=== PATIENT | female | born 1970 | race Caucasian/White ===

== ENCOUNTER 2016-03-14 09:59 | Emergency (ER) | payer MEDICARE, MEDICAID ==
[2016-03-14 10:32] VITALS: BP 129/78
[2016-03-14] MEDS ORDERED: Gabapentin CAP(*) 300 MG PO ONE (11:47)
[2016-03-14] MEDS ORDERED: FLUoxetine CAP* 20 MG PO ONE (11:47)
--- NOTE | 2016-03-14 12:11 | ED ---
Medical Screening - HPI Summary HPI Summary: Patient is the mother of a child being evaluated by mental health. They presented 20 hours ago, and the mother thought the process would move more quickly so she didn't bring her regular daily medications with her. She uses the bus for transportation and lives approximately 25 minutes away, so she hasn' t been able to get home. He daughter is only 9 years old. The patient feels very anxious about her daughter's health, and needs her medication to help with her baseline anxiety. She denies SI, HI or self harm. She has no physical complaints. - History of Current Complaint Chief Complaint: EDGeneral Stated Complaint: MED REQUEST Time Seen by Provider: 03/14/16 10:52 Onset/Duration: Started Hours Ago Severity: severe Associated Signs and Symptoms: Other - Anxiety PMH/Surg Hx/FS Hx/Imm Hx Endocrine/Hematology History: Denies: Hx Anticoagulant Therapy, Hx Diabetes - GESTATIONAL DIABETES BUT NOT NOW, Hx Thyroid Disease Cardiovascular History: Denies: Hx Hypertension, Hx Pacemaker/ICD Respiratory History: Reports: Hx Asthma, Other Respiratory Problems/Disorders - History of bronchitis Denies: Hx Chronic Obstructive Pulmonary Disease (COPD) GI History: Denies: Hx Ulcer, Other GI Disorders History: Reports: Other Problems/Disorders - UTI Denies: Hx Renal Disease Musculoskeletal History: Reports: Hx Arthritis, Hx Back Problems, Other Musculoskeletal History - arthritis Denies: Hx Rheumatoid Arthritis, Hx Osteoporosis Sensory History: Reports: Hx Contacts or Glasses Denies: Hx Hearing Aid Opthamlomology History: Reports: Hx Contacts or Glasses Psychiatric History: Reports: Hx Anxiety, Hx Depression, Hx Inpatient Treatment , Hx Community Mental Health Tx, Hx Bipolar Disorder, Hx of Violent Episodes Against Others, Hx Substance Abuse Denies: Hx Eating Disorder, Hx Panic Disorder - Cancer History Hx Chemotherapy: No Hx Radiation Therapy: No - Surgical History Surgery Procedure, Year, and Place: Caesarean section x2. "Mass of fat" removed from left scapula Infectious Disease History: No Infectious Disease History: Reports: Hx Hepatitis - Hep C hx, Hx of Known/ Suspected MRSA Denies: Hx Clostridium Difficile, Hx Human Immunodeficiency Virus (HIV), Hx Shingles, Hx Tuberculosis, Hx Known/Suspected VRE, Hx Known/Suspected VRSA, History Other Infectious Disease, Traveled Outside the [place] in Last 30 Days - Family History Known Family History: Positive: None, Diabetes Negative: Cardiac Disease, Hypertension - Social History Occupation: Unemployed Lives: With Family Alcohol Use: None Substance Use Type: Reports: None Substance Use Comment - Amount & Last Used: on suboxone since July 2014, heroin abuse hx Smoking Status (MU): Current Every Day Smoker Type: Cigarettes Amount Used/How Often: 1/2 PPD Length of Time of Smoking/Using Tobacco: 26+ years (began at age 16 years) Have You Smoked in the Last Year: Yes Cessation Counseling: Patient Advised to Stop Review of Systems Positive: Anxious All Other Systems Reviewed And Are Negative: Yes Physical Exam Triage Information Reviewed: Yes Vital Signs On Initial Exam: Initial Vitals Temp Pulse Resp BP Pulse Ox 96.6 F 85 18 129/78 100 03/14/16 10:26 03/14/16 10:03/14/16 10:03/14/16 10:03/14/16 10:26 Vital Signs Reviewed: Yes Appearance: Positive: Well-Appearing, No Pain Distress, Well-Nourished Skin: Positive: Warm, Skin Color Reflects Adequate Perfusion, Dry, Soft Head/Face: Positive: Normal Head/Face Inspection Eyes: Positive: EOMI, ALICIA, Conjunctiva Clear ENT: Positive: Hearing grossly normal Respiratory/Lung Sounds: Positive: Breath Sounds Present Cardiovascular: Positive: RRR Musculoskeletal: Negative: Edema Left, Edema Right Neurological: Positive: Sensory/Motor Intact, Alert, Oriented to Person Place, Time, [place] Bundle Intact Distally, Normal Gait Psychiatric: Positive: Anxious AVPU Assessment: Alert Diagnostics - Vital Signs Vital Signs Temp Pulse Resp BP Pulse Ox 03/14/16 10:26 96.6 F 85 18 129/78 100 - Laboratory Lab Statement: Any lab studies that have been ordered have been reviewed, and results considered in the medical decision making process. Course/Dx - Diagnoses Provider Diagnoses: Anxiety Discharge - Discharge Plan Condition: Stable Disposition: HOME Referrals: Kurt Weber MD [Primary Care Provider] - Additional Instructions: Please resume your normal medications.
[2016-03-15] MEDS ORDERED: Divalproex ER TAB(*) 500 MG PO ONE (11:53)
== END 2016-03-14 12:37 | disposition home or self-care (01) ==
LOC: ED 09:59
DX: F41.9 Anxiety disorder, unspecified (principal); F17.210 Nicotine dependence, cigarettes, uncomplicated; B19.20 Unspecified viral hepatitis C without hepatic coma
CPT/HCPCS: 99281; A9270-GY

== ENCOUNTER 2016-06-28 08:26 | Emergency (ER) | payer MEDICARE, MEDICAID ==
[2016-06-28 08:45] VITALS: BP 125/68
--- NOTE | 2016-06-28 10:17 | UC ---
Lower Extremity/Ankle HPI - HPI Summary HPI Summary: pain in right foot---no specific injury is concerned that she has a stress fracture---(she had something similar in left foot-that only showed fx after MRI ) - History of Current Complaint Chief Complaint: UCLowerExtremity Stated Complaint: FOOT PAIN Time Seen by Provider: 06/28/16 10:15 Hx Obtained From: Patient Hx Last Menstrual Period: iud ?: No Onset/Duration: Gradual Onset, Lasting Weeks, Worse Since - past fe days Severity Initially: Moderate Severity Currently: Moderate Aggravating Factor(s): Standing, Ambulation Alleviating Factor(s): Rest, Elevation Able to Bear Weight: No - Allergies/Home Medications Allergies/Adverse Reactions: Allergies Allergy/AdvReac Type Severity Reaction Status Date / Time Tetracyclines Allergy Severe Swelling Verified 02/06/16 14:19 Of Face,Lips,& Throat Latex Allergy Mild Rash Verified 02/06/16 14:19 [place] Allergy Rash Verified 02/06/16 14:19 Home Medications: Home Medications Asenapine Maleate [Saphris] 06/28/16 [History] [place] Carbonate [Lithobid] 900 mg 06/28/16 [History] PMH/Surg Hx/FS Hx/Imm Hx Previously Healthy: No - in recovery from opiate addiction Endocrine History Of: Denies: Diabetes - GESTATIONAL DIABETES BUT NOT NOW, Thyroid Disease Cardiovascular History Of: Denies: Cardiac Disorders, Hypertension, Pacemaker/ICD Respiratory History Of: Reports: Asthma Denies: COPD GI/ History Of: Denies: Ulcer, Renal Disease Psychological History Of: Reports: Anxiety, Depression, Bipolar Disorder Other History Of: Negative For: Anticoagulant Therapy - Surgical History Surgical History: Yes Surgery Procedure, Year, and Place: Caesarean section x2. "Mass of fat" removed from left scapula - Family History Known Family History: Positive: None, Diabetes Negative: Cardiac Disease, Hypertension - Social History Occupation: Unemployed Lives: With Family Alcohol Use: None Substance Use Type: None Substance Use Comment - Amount & Last Used: on suboxone since July 2014, heroin abuse hx Smoking Status (MU): Former Smoker Type: Cigarettes Amount Used/How Often: 1/2 PPD Length of Time of Smoking/Using Tobacco: 26+ years (began at age 16 years) Have You Smoked in the Last Year: Yes When Did the Patient Quit Smoking/Using Tobacco: 3 months ago Household Exposure Type: Cigarettes - Immunization History Most Recent Influenza Vaccination: Last years Most Recent Tetanus Shot: Unsure - about 2 years ago Most Recent Pneumonia Vaccination: Unsure Review of Systems Constitutional: Negative Skin: Negative Eyes: Negative ENT: Negative Respiratory: Negative Cardiovascular: Negative Gastrointestinal: Negative Genitourinary: Negative Motor: Negative Neurovascular: Negative Musculoskeletal: Arthralgia - right foot Neurological: Negative Psychological: Negative All Other Systems Reviewed And Are Negative: Yes Physical Exam Triage Information Reviewed: Yes Appearance: Well-Appearing, Well-Nourished, Pain Distress Vital Signs: Initial Vital Signs Temp 97.8 F 06/28/16 08:38 Pulse 72 06/28/16 08:38 Resp 18 06/28/16 08:38 BP 125/68 06/28/16 08:38 Pulse Ox 99 06/28/16 08:38 Vital Signs Reviewed: Yes Eye Exam: Normal Eyes: Positive: Conjunctiva Clear ENT Exam: Normal ENT: Positive: Normal ENT inspection, Hearing grossly normal. Negative: Nasal congestion, Nasal drainage, Tonsillar swelling, Tonsillar exudate, Trismus, Muffled/hoarse voice Dental Exam: Normal Neck exam: Normal Neck: Positive: Supple, Nontender, No Lymphadenopathy Respiratory Exam: Normal Respiratory: Positive: Chest non-tender, Lungs clear, Normal breath sounds, No respiratory distress, No accessory muscle use Cardiovascular Exam: Normal Cardiovascular: Positive: RRR, No Murmur, Pulses Normal, Brisk Capillary Refill Musculoskeletal Exam: Normal Musculoskeletal: Positive: Strength Intact, No Edema, ROM Limited @ - right mid foot Neurological Exam: Normal Neurological: Positive: Alert, Muscle Tone Normal Psychological Exam: Normal Skin Exam: Normal Diagnostics - Radiology No standard instances Xray Interpretation: Positive (See Comments) - small heel spur Radiology Interpretation Completed By: ED Physician, Radiologist Lower Extremity Course/Dx - Course Course Of Treatment: cam boot, crutches, ibuprofen,rest follow with ortho - Differential Dx/Diagnosis Differential Diagnosis/HQI/PQRI: Fracture (Closed), Sprain, Strain, Tendonitis Provider Diagnoses: (r) plantar fasciitis Discharge - Discharge Plan Condition: Stable Disposition: HOME Patient Education Materials: Plantar Fasciitis (ED), Heel Spur (ED), Plantar Fasciitis Exercises (ED) Referrals: Kurt Weber MD [Primary Care Provider] - Rudy Mcdowell MD [Medical Doctor] - 1 Week
--- NOTE | 2016-06-28 10:52 | RAD ---
INDICATION: Right heel pain. TECHNIQUE: 3 views of the right foot were obtained. FINDINGS: The bones are in normal alignment. No fracture is seen. Joint spaces appear maintained. There is a small spur arising from the inferior aspect of the calcaneus. IMPRESSION: SMALL CALCANEAL SPUR.
== END 2016-06-28 11:25 | disposition home or self-care (01) ==
LOC: UCEAST 08:26
DX: M72.2 Plantar fascial fibromatosis (principal)
CPT/HCPCS: 99213; G0463

== ENCOUNTER 2016-08-21 14:34 | Emergency (ER) | payer MEDICARE, MEDICAID ==
[2016-08-21 15:48] VITALS: BP 154/81
--- NOTE | 2016-08-21 16:01 | UC ---
Lower Extremity/Ankle HPI - HPI Summary HPI Summary: PT HAS CHRONIC ISSUES WITH BOTH HER FEET. RIGHT FOOT JUST CAME OUT OF A BOOT 3 WEEKS AGO FOR A CRACKED HEEL SPUR THAT RESULTED FROM COMPENSATING WHILE WALKING WITH HER LEFT FOOT IN A BOOT/CAST DUE TO FOOT FRACTURES. WHILE WALKING IN THE [place] 5 DAYS AGO SHE FELT AND HEARD A CRACK IN HER RIGHT FOOT AND NOW HAS PAIN AND SWELLING. OUT OF ANGER AND FRUSTRATION ABOUT HER FEET SHE DID NOT COME IN UNTIL TODAY FOR EVALUATION. SHE HAS BEEN FOLLOWING WITH DR. ANGULO WITH [facility]. - History of Current Complaint Stated Complaint: FOOT PAIN Time Seen by Provider: 08/21/16 15:36 Hx Obtained From: Patient Hx Last Menstrual Period: IUD 08/18/16 Onset/Duration: Sudden Onset, Lasting Days, Still Present Severity Initially: Moderate Severity Currently: Moderate Pain Intensity: 3 Pain Scale Used: 0-10 Numeric Aggravating Factor(s): Standing, Ambulation Alleviating Factor(s): Rest Able to Bear Weight: Yes - WITH PAIN - Allergies/Home Medications Allergies/Adverse Reactions: Allergies Allergy/AdvReac Type Severity Reaction Status Date / Time Tetracyclines Allergy Severe Swelling Verified 08/21/16 15:48 Of Face,Lips,& Throat Latex Allergy Mild Rash Verified 08/21/16 15:48 [place] Allergy Rash Verified 08/21/16 15:48 PMH/Surg Hx/FS Hx/Imm Hx - Additional Past Medical History Additional PMH: OSTEOPOROSIS Psychological History: Anxiety, Depression, Bipolar Disorder Other History Of: Negative For: Anticoagulant Therapy - Surgical History Surgical History: Yes Surgery Procedure, Year, and Place: Caesarean section x2. "Mass of fat" removed from left scapula - Family History Known Family History: Positive: None, Diabetes Negative: Cardiac Disease, Hypertension - Social History Alcohol Use: None Substance Use Type: None Substance Use Comment - Amount & Last Used: on suboxone since July 2014, heroin abuse hx Smoking Status (MU): Former Smoker Type: Cigarettes Amount Used/How Often: 1/2 PPD Length of Time of Smoking/Using Tobacco: 26+ years (began at age 16 years) Have You Smoked in the Last Year: Yes When Did the Patient Quit Smoking/Using Tobacco: 3 months ago Household Exposure Type: Cigarettes - Immunization History Most Recent Influenza Vaccination: Last years Most Recent Tetanus Shot: Unsure - about 2 years ago Most Recent Pneumonia Vaccination: Unsure Review of Systems Constitutional: Negative Skin: Negative Cardiovascular: Negative Gastrointestinal: Negative Genitourinary: Negative Musculoskeletal: Arthralgia, Decreased ROM All Other Systems Reviewed And Are Negative: Yes Physical Exam Triage Information Reviewed: Yes Appearance: Well-Appearing, No Pain Distress, Well-Nourished Vital Signs: Initial Vital Signs Temp 99.1 F 08/21/16 15:38 Pulse 90 08/21/16 15:38 Resp 16 08/21/16 15:38 BP 154/81 08/21/16 15:38 Pulse Ox 99 08/21/16 15:38 Vital Signs Reviewed: Yes Eyes: Positive: Conjunctiva Clear ENT: Positive: Hearing grossly normal Neck: Positive: Supple Respiratory: Positive: No respiratory distress, No accessory muscle use Cardiovascular: Positive: Pulses Normal Abdomen Description: Positive: Soft Musculoskeletal: Positive: ROM Limited @ - RIGHT TOES, Edema @ - RIGHT FOOT, Other: - TTP BRIDGE OF FOOT OVER 4TH METATARSAL Neurological: Positive: Alert Psychological: Positive: Age Appropriate Behavior Skin: Positive: rashes Diagnostics - Radiology RIGHT FOOT XRAY Xray Interpretation: Positive (See Comments) - SOFT TISSUE SWELLING Radiology Interpretation Completed By: Radiologist Lower Extremity Course/Dx - Course Course Of Treatment: PT HAS BOOT AND CRUTCHES AT HOME. WILL PEPE WRAP AND HAVE PT F/U WITH [facility] THIS WEEK. - Differential Dx/Diagnosis Provider Diagnoses: RIGHT FOOT SPRAIN Discharge - Discharge Plan Condition: Stable Disposition: HOME Patient Education Materials: Foot Sprain (ED) Referrals: Kurt Weber MD [Primary Care Provider] - If Needed Rudy Angulo MD [Medical Doctor] - 2 Days Additional Instructions: NO FRACTURES SEEN ON XRAY TODAY. YOU MAY BENEFIT FROM AN MRI IF YOUR PAIN PERSISTS. WEAR YOUR PEPE AND BOOT AND FOLLOW-UP WITH ORTHO. USE YOUR CRUTCHES TO HELP WITH MOBILITY.
--- NOTE | 2016-08-21 16:14 | RAD ---
Indication: RIGHT foot pain and edema post fall 5 days ago. Reinjury; recent fracture. Comparison: June 28, 2016 Technique: AP, lateral, and oblique views RIGHT foot. Report: Soft tissue swelling most prominent over the dorsum of the forefoot. Negative for fracture. Normal articular alignment. Minimal osteophytosis and joint space narrowing at the first metatarsal phalangeal joint. Small plantar fascia origin bone spur. IMPRESSION: Soft tissue swelling without evidence for fracture or malalignment.
== END 2016-08-21 16:42 | disposition home or self-care (01) ==
LOC: UCEAST 14:34
DX: S93.601A Unspecified sprain of right foot, initial encounter (principal); M81.0 Age-related osteoporosis without current pathological fracture; F41.8 Other specified anxiety disorders; F31.9 Bipolar disorder, unspecified
CPT/HCPCS: 99212; G0463

== ENCOUNTER 2016-10-02 08:00 | Emergency (ER) | payer MEDICARE, MEDICAID ==
[2016-10-02] MEDS ORDERED: NS 0.9% 1000 ML* 1,000 ML IV ONE (08:23)
[2016-10-02] MEDS ORDERED: Morphine INJ* 4 MG/ML 1 ML CARPUJECT IV ONE (08:32)
[2016-10-02 08:51] LABS: Hematocrit 45 % (35-47); Hemoglobin 14.7 g/dl (12.0-16.0); Mean Corpuscular HGB Conc 33 g/dl (31-36); Mean Corpuscular Hemoglobin 31 pg (27-31); Mean Corpuscular Volume 95 fL (80-97); Mean Platelet Volume 8 um3 (7.4-10.4); Red Blood Count 4.68 10^6/ul (4.0-5.4); Red Cell Distribution Width 13 % (10.5-15); White Blood Count 9.5 10^3/ul (3.5-10.8)
[2016-10-02 09:02] LABS: ALT 8 U/L (7-52); AST 10 U/L (13-39); Albumin 4.5 g/dL (3.2-5.2); Alkaline Phosphatase 84 U/L (34-104); Anion Gap 7 mmol/L (2-11); BUN/Creatinine Ratio 15.8 (8-20); Blood Urea Nitrogen 12 mg/dL (6-24); C Reactive Protein 3.19 mg/L (< 5.00); CO2 Carbon Dioxide 23 mmol/L (22-32); Calcium 9.8 mg/dL (8.6-10.3); Chloride 102 mmol/L (101-111); Creatine Kinase 24 U/L (10-223); EGFR African American 106.3 (>60); EGFR Non-African American 82.7 (>60); Globulin 2.7 g/dL (2-4); Glucose 99 mg/dL (70-100); Lipase < 10 U/L (11.0-82.0); Potassium 4.2 mmol/L (3.5-5.0); Sodium 132 mmol/L (133-145); Total Protein 7.2 g/dL (6.4-8.9)
[2016-10-02 10:21] LABS: Urine Bacteria 1+ (Absent); Urine Bilirubin Negative (Negative); Urine Glucose Negative (Negative); Urine Nitrite Negative (Negative)
[2016-10-02] MEDS ORDERED: Iohexol 300* (CONTRAST) 10 ML SDV IV ONE (11:16)
--- NOTE | 2016-10-02 11:53 | RAD ---
Indication: Left lower quadrant pain. Contrast: Administered 98.7 ml of OMNIPAQUE 300 mgi/ml CT of the abdomen and pelvis was performed after oral and IV contrast administration. Coronal and sagittal reconstructed images were obtained. Lung bases demonstrate no pleural fluid, nodules or masses. Heart is of normal size without evidence of pericardial effusion. Liver is normal in size. No focal lesions or intrahepatic ductal dilatation is noted. The gallbladder demonstrates no calcified gallstones. No pericholecystic fluid or wall thickening is identified. The pancreas demonstrates no mass or pancreatic ductal dilatation. The spleen is normal in size. No adrenal lesions are noted. The kidneys demonstrate symmetric nephrograms without focal lesions. No dilated loops of bowel are noted. CT of the pelvis demonstrates no retroperitoneal or pelvic lymphadenopathy. Aorta and inferior vena cava are unremarkable. No pelvic adenopathy is identified. Small lymph nodes are noted. Contrast is noted in the colon. Appendix is visualized and is normal. There is stool throughout the colon. No evidence of diverticulitis is noted. The uterus demonstrates IUD in place. Follicles are noted in both ovaries with a cyst in the right ovary measuring up to 2.3 cm. No free fluid is identified. IMPRESSION: No evidence of diverticulitis is noted. No peridiverticular abscess is noted. No other masses or fluid collections are noted. Bilateral follicles are noted in both ovaries.
--- NOTE | 2016-10-02 13:12 | RAD ---
Indication: Left lower quadrant pain, pelvic pain. Real-time sonography of the pelvis was performed. The uterus measures 9.4 x 5.0 x 5.5 cm. Endometrial echo measures 10 mm with a intrauterine device in place. The right ovary measures 3.4 x 2.6 x 2.8 cm with complex right ovarian cyst measuring up to 2.7 cm. Left ovary measures 3.5 x 1.5 x 2.5 cm. Doppler interrogation demonstrates flow in both ovaries. IMPRESSION: IUD IN PLACE. PROBABLE FOLLICULAR CYSTS WITH HEMORRHAGE IN THE RIGHT OVARY MEASURING UP TO 2.7 CM.
[2016-10-02 13:46] VITALS: BP 108/68
--- NOTE | 2016-10-02 18:01 | ED ---
Laith Gilliland Alfonso, scribed for Jcarlos Millan MD on 10/02/16 at 0834 . Abdominal Pain/Female - HPI Summary HPI Summary: This patient is a 46 year old F presenting to [facility] with a chief complaint of LLQ pain since 5 days ago. The patient rates the pain 9/10 in severity. Symptoms aggravated and alleviated by nothing. Patient reports nausea, diarrhea (5-3 days ago), and constipation (past two days no BM).Patient denies vomiting. Denies PMHx of diverticulitis and renal calculi. - History of Current Complaint Chief Complaint: EDAbdPain Stated Complaint: LT SIDE ABD PAIN Time Seen by Provider: 10/02/16 08:24 Hx Obtained From: Patient Hx Last Menstrual Period: IUD 08/18/16 Onset/Duration: Sudden Onset, Lasting Days - 5, Still Present Timing: Constant Severity Initially: Severe Severity Currently: Severe Pain Intensity: 9 Pain Scale Used: 0-10 Numeric Location: Discrete At: LLQ Aggravating Factor(s): Nothing Alleviating Factor(s): Nothing Associated Signs and Symptoms: Positive: Other: - Patient reports nausea, diarrhea (5-3 days ago), and constipation (past two days no BM).Patient denies vomiting. Allergies/Adverse Reactions: Allergies Allergy/AdvReac Type Severity Reaction Status Date / Time Tetracyclines Allergy Severe Swelling Verified 08/21/16 15:48 Of Face,Lips,& Throat Latex Allergy Mild Rash Verified 08/21/16 15:48 Dickinson Allergy Rash Verified 08/21/16 15:48 PMH/Surg Hx/FS Hx/Imm Hx Endocrine/Hematology History: Denies: Hx Anticoagulant Therapy, Hx Diabetes - GESTATIONAL DIABETES BUT NOT NOW, Hx Thyroid Disease Cardiovascular History: Denies: Hx Hypertension, Hx Pacemaker/ICD Respiratory History: Reports: Hx Asthma, Other Respiratory Problems/Disorders - History of bronchitis Denies: Hx Chronic Obstructive Pulmonary Disease (COPD) GI History: Denies: Hx Ulcer, Other GI Disorders History: Reports: Other Problems/Disorders - UTI Denies: Hx Renal Disease Musculoskeletal History: Reports: Hx Arthritis, Hx Back Problems, Other Musculoskeletal History - arthritis Denies: Hx Rheumatoid Arthritis Comment Only: Hx Osteoporosis - FAMILY HX Sensory History: Reports: Hx Contacts or Glasses Opthamlomology History: Reports: Hx Contacts or Glasses Psychiatric History: Reports: Hx Anxiety, Hx Depression, Hx Inpatient Treatment , Hx Community Mental Health Tx, Hx Bipolar Disorder, Hx of Violent Episodes Against Others, Hx Substance Abuse Denies: Hx Eating Disorder, Hx Panic Disorder - Cancer History Hx Chemotherapy: No Hx Radiation Therapy: No - Surgical History Surgery Procedure, Year, and Place: Caesarean section x2. "Mass of fat" removed from left scapula Infectious Disease History: No Infectious Disease History: Reports: Hx Hepatitis - Hep C hx, Hx of Known/ Suspected MRSA - on the skull - cleared now Denies: Hx Clostridium Difficile, Hx Human Immunodeficiency Virus (HIV), Hx Shingles, Hx Tuberculosis, Hx Known/Suspected VRE, Hx Known/Suspected VRSA, History Other Infectious Disease, Traveled Outside the [place] in Last 30 Days - Family History Known Family History: Positive: Cardiac Disease, Hypertension, Diabetes - Social History Alcohol Use: None Substance Use Type: Reports: Marijuana Substance Use Comment - Amount & Last Used: on suboxone since July 2014, heroin abuse hx Smoking Status (MU): Former Smoker Type: Cigarettes Amount Used/How Often: 1/2 PPD Length of Time of Smoking/Using Tobacco: 26+ years (began at age 16 years) Have You Smoked in the Last Year: Yes Review of Systems Positive: Abdominal Pain - LLQ, Diarrhea - 5-3 days ago, Nausea, Other - Positive constipation (past two days no BM).. Negative: Vomiting All Other Systems Reviewed And Are Negative: Yes Physical Exam - Summary Physical Exam Summary: VITAL SIGNS: Reviewed. GENERAL: Patient is a well-developed and nourished female who is lying comfortable in the stretcher. Patient is not in any acute respiratory distress. HEAD AND FACE: Normocephalic and atraumatic. EYES: PERRLA, EOMI x 2, No injected conjunctiva. EARS: Hearing grossly intact. Ear canals and tympanic membranes are WNL. MOUTH: Oropharynx within normal limits. NECK: Supple, trachea is midline, no adenopathy, no JVD. CHEST: Symmetric, no tenderness at palpation LUNGS: Clear to auscultation bilaterally. No wheezing or crackles. CVS: RRR, S1 and S2 present, no murmurs or gallops appreciated. ABDOMEN: Soft. LLQ tenderness. No signs of distention. Positive bowel sounds. No rebound no guarding, and no masses palpated. No abdominal bruit or pulsations. EXTREMITIES: FROM in all major joints, no edema, no cyanosis or clubbing. NEURO: Alert and oriented x 3. No acute neurological deficits. Speech is normal. SKIN: Dry and warm Triage Information Reviewed: Yes Vital Signs On Initial Exam: Initial Vitals Temp Pulse Resp BP Pulse Ox 96.8 F 75 19 120/68 99 10/02/16 08:16 10/02/16 08:16 10/02/16 08:16 10/02/16 08:16 10/02/16 08:16 Vital Signs Reviewed: Yes Diagnostics - Vital Signs Vital Signs Temp Pulse Resp BP Pulse Ox 10/02/16 08:25 96.8 F 64 18 118/65 98 10/02/16 08:16 96.8 F 75 19 120/68 99 - Laboratory Lab Results: Lab Results 10/02/16 10/02/16 10/02/16 Range/Units 08:34 08:34 08:34 WBC 9.5 (3.5-10.8) 10^3/ul RBC 4.68 (4.0-5.4) 10^6/ul Hgb 14.7 (12.0-16.0) g/dl Hct 45 (35-47) % MCV 95 (80-97) fL MCH 31 (27-31) pg MCHC 33 (31-36) g/dl RDW 13 (10.5-15) % Plt Count 289 (150-450) 10^3/ul MPV 8 (7.4-10.4) um3 Neut % (Auto) 73.1 (38-83) % Lymph % (Auto) 19.8 L (25-47) % Slope % (Auto) 4.4 (1-9) % Eos % (Auto) 2.0 (0-6) % Baso % (Auto) 0.7 (0-2) % Absolute Neuts (auto) 6.9 (1.5-7.7) 10^3/ul Absolute Lymphs (auto) 1.9 (1.0-4.8) 10^3/ul Absolute Monos (auto) 0.4 (0-0.8) 10^3/ul Absolute Eos (auto) 0.2 (0-0.6) 10^3/ul Absolute Basos (auto) 0.1 (0-0.2) 10^3/ul Absolute Nucleated RBC 0 10^3/ul Nucleated RBC % 0 Sodium 132 L (133-145) mmol/L Potassium 4.2 (3.5-5.0) mmol/L Chloride 102 (101-111) mmol/L Carbon Dioxide 23 (22-32) mmol/L Anion Gap 7 (2-11) mmol/L BUN 12 (6-24) mg/dL Creatinine 0.76 (0.51-0.95) mg/dL Est GFR ( Amer) 106.3 (>60) Est GFR (Non-Af Amer) 82.7 (>60) BUN/Creatinine Ratio 15.8 (8-20) Glucose 99 (70-100) mg/dL Lactic Acid 1.2 (0.5-2.0) mmol/L Calcium 9.8 (8.6-10.3) mg/dL Total Bilirubin 0.50 (0.2-1.0) mg/dL AST 10 L (13-39) U/L ALT 8 (7-52) U/L Alkaline Phosphatase 84 (34-104) U/L Total Creatine Kinase 24 (10-223) U/L C-Reactive Protein 3.19 (< 5.00) mg/L Total Protein 7.2 (6.4-8.9) g/dL Albumin 4.5 (3.2-5.2) g/dL Globulin 2.7 (2-4) g/dL Albumin/Globulin Ratio 1.7 (1-3) Lipase < 10 L (11.0-82.0) U/L Beta HCG, Quant < 0.60 mIU/mL Urine Color Urine Appearance Urine pH (5-9) Ur Specific [place] (1.010-1.030) Urine Protein (Negative) Urine Ketones (Negative) Urine Blood (Negative) Urine Nitrate (Negative) Urine Bilirubin (Negative) Urine Urobilinogen (Negative) Ur Leukocyte Esterase (Negative) Urine WBC (Auto) (Absent) Urine RBC (Auto) (Absent) Ur Squamous Epith Cells (Absent) Urine Bacteria (Absent) Urine Glucose (Negative) 10/02/16 Range/Units 10:01 WBC (3.5-10.8) 10^3/ul RBC (4.0-5.4) 10^6/ul Hgb (12.0-16.0) g/dl Hct (35-47) % MCV (80-97) fL MCH (27-31) pg MCHC (31-36) g/dl RDW (10.5-15) % Plt Count (150-450) 10^3/ul MPV (7.4-10.4) um3 Neut % (Auto) (38-83) % Lymph % (Auto) (25-47) % Slope % (Auto) (1-9) % Eos % (Auto) (0-6) % Baso % (Auto) (0-2) % Absolute Neuts (auto) (1.5-7.7) 10^3/ul Absolute Lymphs (auto) (1.0-4.8) 10^3/ul Absolute Monos (auto) (0-0.8) 10^3/ul Absolute Eos (auto) (0-0.6) 10^3/ul Absolute Basos (auto) (0-0.2) 10^3/ul Absolute Nucleated RBC 10^3/ul Nucleated RBC % Sodium (133-145) mmol/L Potassium (3.5-5.0) mmol/L Chloride (101-111) mmol/L Carbon Dioxide (22-32) mmol/L Anion Gap (2-11) mmol/L BUN (6-24) mg/dL Creatinine (0.51-0.95) mg/dL Est GFR ( Amer) (>60) Est GFR (Non-Af Amer) (>60) BUN/Creatinine Ratio (8-20) Glucose (70-100) mg/dL Lactic Acid (0.5-2.0) mmol/L Calcium (8.6-10.3) mg/dL Total Bilirubin (0.2-1.0) mg/dL AST (13-39) U/L ALT (7-52) U/L Alkaline Phosphatase (34-104) U/L Total Creatine Kinase (10-223) U/L C-Reactive Protein (< 5.00) mg/L Total Protein (6.4-8.9) g/dL Albumin (3.2-5.2) g/dL Globulin (2-4) g/dL Albumin/Globulin Ratio (1-3) Lipase (11.0-82.0) U/L Beta HCG, Quant mIU/mL Urine Color Yellow Urine Appearance Cloudy Urine pH 8.0 (5-9) Ur Specific [place] 1.002 L (1.010-1.030) Urine Protein Negative (Negative) Urine Ketones Negative (Negative) Urine Blood Negative (Negative) Urine Nitrate Negative (Negative) Urine Bilirubin Negative (Negative) Urine Urobilinogen Negative (Negative) Ur Leukocyte Esterase Trace H (Negative) Urine WBC (Auto) Trace(0-5/hpf) (Absent) Urine RBC (Auto) Trace(0-2/hpf) (Absent) Ur Squamous Epith Cells Present H (Absent) Urine Bacteria 1+ H (Absent) Urine Glucose Negative (Negative) Result Diagrams: 10/02/16 08:34 10/02/16 08:34 Lab Statement: Any lab studies that have been ordered have been reviewed, and results considered in the medical decision making process. - CT A/P CT Interpretation Completed By: Radiologist - No evidence of diverticulitis is noted. No peridiverticular abscess is noted. No other masses or fluid collections are noted. Bilateral follicles are noted in both ovaries. - EKG 0836 Cardiac Rate: Bradycardia - PM 52 EKG Rhythm: Sinus Bradycardia ST Segment: Normal - Additional Comments Diagnostic Additional Comments: A transvaginal US reveals, per radiologist, IUD IN PLACE. PROBABLE FOLLICULAR CYSTS WITH HEMORRHAGE IN THE RIGHT OVARY MEASURING UP TO 2.7 CM. Abdominal Pain Fem Course/Dx - Course Course Of Treatment: This patient is a 46 year old F presenting to [facility] with a chief complaint of LLQ pain since 5 days ago. The patient rates the pain 9/10 in severity. Symptoms aggravated and alleviated by nothing. Patient reports nausea, diarrhea (5-3 days ago), and constipation (past two days no BM).Patient denies vomiting. Denies PMHx of diverticulitis and renal calculi. Blood work with no significant abnormalities. Urinalysis negative for UTI. It is contaminated; therefore it will be sent for a urine culture. I decided to do a CT A/P since the patient has LLQ pain to r/o diverticulitis vs kidney stone vs other abdominal pathology. A CT A/P reveals No evidence of diverticulitis is noted. No peridiverticular abscess is noted. No other masses or fluid collections are noted. Bilateral follicles are noted in both ovaries. Therefore , I decide to do a transvaginal US to r/o ovarian pathology. A transvaginal US reveals IUD IN PLACE. PROBABLE FOLLICULAR CYSTS WITH HEMORRHAGE IN THE RIGHT OVARY MEASURING UP TO 2.7 CM. In the ED course the patient was given IV fluids and toradol for the pain and she feels better. Patient declined a pelvic exam. Therefore, she will be discharged home with PCP follow up. She was instructed to return to the ED if she develops fever, chills, nausea, vomiting, or abdominal pain. She understands and agrees. The patient is hemodynamically stable and alert and oriented to person, place, and time. I discussed all the findings and test results with the patient. Patient was instructed to return to the emergency room immediately if any of the symptoms return or worsens. They were explained the possibility of an early abdominal pathology which was not detected at this time despite the physical exam and testing. They understand and agree. Abdominal exam before discharge: Soft, NT. No signs of distention. BS present. No rebound no guarding, and no masses palpated. Patient is alert and oriented and hemodynamically stable. Patient is to follow up with primary care physician in the next 2 to 3 days. Patient agree and understands. - Diagnoses Differential Diagnosis: Positive: Appendicitis, Bowel Obstruction, Constipation , Diverticulitis, Ovarian Cyst, Renal Colic, Urinary Tract Infection Provider Diagnoses: Abdominal pain Discharge - Discharge Plan Condition: Stable Disposition: HOME Prescriptions: Naproxen TAB* [Naprosyn 250 mg TAB*] 500 mg PO Q8H PRN #20 tab PRN Reason: Pain Patient Education Materials: Acute Abdominal Pain (ED) Referrals: Kurt Weber MD [Primary Care Provider] - 5 Days The documentation as recorded by the Laith pantoja Alfonso accurately reflects the service I personally performed and the decisions made by me, Jcarlos Millan MD.
== END 2016-10-02 14:01 | disposition home or self-care (01) ==
LOC: ED 08:00
DX: R10.32 Left lower quadrant pain (principal); R10.9 Unspecified abdominal pain
CPT/HCPCS: 36415; 74177; 76830; 80053; 81003; 81015; 82550; 83605; 83690; 84702; 85025; 86140; 87086; 93005; 96374; 99282; J2270; Q9967

== ENCOUNTER 2017-11-15 15:26 | Emergency (ER) | payer MEDICAID, MEDICARE ==
[2017-11-15 15:50] VITALS: BP 131/74
--- NOTE | 2017-11-15 15:57 | UC ---
Skin Complaint HPI - HPI Summary HPI Summary: C/O infection over the face after falling and scraping face. Also having allergy symptoms, eyes are puffy nose is congested and having throat symptoms. Feels like has a fever. - History of Current Complaint Time Seen by Provider: 11/15/17 15:45 Stated Complaint: POSSIBLE ALLERGIC REACTION Hx Obtained From: Patient Hx Last Menstrual Period: IUD 08/18/16 ?: No Onset/Duration: Sudden Onset - fell yesterday. Woke up with purulent discharge. , Worse Since - today with feeling of throat swelling eye swelling and drainage Timing: Constant Onset Severity: Mild Current Severity: Severe Location: Face - left lower lip at piercing and right upper lip piercing Character: Swelling, Redness, Painful Aggravating Factor(s): Touch Alleviating Factor(s): Nothing Associated Signs & Symptoms: Positive: Diaphoresis, Throat Tightening, Rash - with abrasion. Related History: Trauma - fell and scraped face yesterday - Allergy/Home Medications Allergies/Adverse Reactions: Allergies Allergy/AdvReac Type Severity Reaction Status Date / Time tetracycline Allergy Severe facial Verified 11/15/17 15:52 swelling/hives latex Allergy Intermediate Rash Verified 11/15/17 15:52 pine Allergy Intermediate Rash Uncoded 11/15/17 15:52 Home Medications: Home Medications Cariprazine (NF) [Vraylar (Nf)] 3 mg PO BEDTIME 11/15/17 [History Confirmed ] Mirtazapine TAB* [Remeron TAB*] 7.5 mg PO BEDTIME 11/15/17 [History Confirmed ] Review of Systems Constitutional: Fever Skin: Rash - abrasion on face. Eyes: Drainage - and lid swelling, Eye Redness ENT: Sore Throat Is Patient Immunocompromised?: No All Other Systems Reviewed And Are Negative: Yes PMH/Surg Hx/FS Hx/Imm Hx Respiratory History: Asthma Psychological History: Anxiety, Depression, Bipolar Disorder Other History Of: Hepatitis C Negative For: Anticoagulant Therapy - Surgical History Surgical History: None Surgery Procedure, Year, and Place: Caesarean section x2. LIPOMA removed from left scapula - Family History Known Family History: Positive: None, Cardiac Disease, Hypertension, Diabetes - Social History Occupation: Disabled Lives: Alone Alcohol Use: None Substance Use Type: Marijuana Substance Use Comment - Amount & Last Used: on suboxone since July 2014, heroin abuse hx Smoking Status (MU): Former Smoker Type: Cigarettes Amount Used/How Often: 1/2 PPD Length of Time of Smoking/Using Tobacco: 26+ years (began at age 16 years) Have You Smoked in the Last Year: Yes When Did the Patient Quit Smoking/Using Tobacco: 3 months ago Household Exposure Type: Cigarettes - Immunization History Most Recent Influenza Vaccination: Last years Most Recent Tetanus Shot: Unsure - about 2 years ago Most Recent Pneumonia Vaccination: Unsure Physical Exam Triage Information Reviewed: Yes Appearance: Well-Nourished, Ill-Appearing, Pain Distress Vital Signs Reviewed: Yes Eyes: Positive: Conjunctiva Inflamed, Discharge - OS>OD ENT: Positive: Pharynx normal, Nasal congestion - with Allergic changes., TMs normal Neck exam: Normal Respiratory Exam: Normal Cardiovascular Exam: Normal Musculoskeletal Exam: Normal Neurological Exam: Normal Psychological Exam: Normal Skin: Positive: rashes - right upper lip and left lower lip with erythema, induration and tenderness. Piercing removed at patient request. Course/Dx - Differential Diagnoses - Skin Complaint Differential Diagnoses: Abscess, Cellulitis, Drug Rash, Impetigo - Diagnoses Provider Diagnoses: Abrasion face. Cellulitis face. Conjunctivitis viral OU Discharge - Sign-Out/Discharge Documenting (check all that apply): Patient Departure All imaging exams completed and their final reports reviewed: No Studies - Discharge Plan Condition: Stable Disposition: HOME Prescriptions: Cephalexin CAP* [Keflex 500 CAP*] 500 mg PO QID #28 cap Cetirizine* [ZyrTEC 10 MG TAB*] 10 mg PO DAILY PRN #30 tab PRN Reason: Allergy Symptoms Erythromycin OPTH OINT* [Erythromycin 0.5% OPTH OINT*] 0.25 inch BOTH EYES TID # 7 gm predniSONE TAB* [Deltasone 10 MG TAB*] 10 mg PO DAILY #18 tab Patient Education Materials: Cellulitis (ED), Cephalexin (By mouth), Allergic Rhinitis (ED), Cetirizine (By mouth), Erythromycin (Into the eye), Conjunctivitis (ED) Referrals: Kurt Weber MD [Primary Care Provider] - Additional Instructions: EYE OINTMENT USE: Wash hands. Place 1/4" strip across tip of finger. Pull lower lid down with the index finger and stabilize the ointment finger with the middle finger and scrape the ointment off on the lid. Pull the lid out and let go as you look down. - Billing Disposition and Condition Condition: STABLE Disposition: Home
== END 2017-11-15 16:35 | disposition home or self-care (01) ==
LOC: UCCORT 15:26
DX: S00.81XA Abrasion of other part of head, initial encounter (principal); L03.211 Cellulitis of face; B30.9 Viral conjunctivitis, unspecified; F12.90 Cannabis use, unspecified, uncomplicated; F11.11 Opioid abuse, in remission; W19.XXXA Unspecified fall, initial encounter; Y92.9 Unspecified place or not applicable; Z87.891 Personal history of nicotine dependence; Z91.040 Latex allergy status; Z88.1 Allergy status to other antibiotic agents; Z79.2 Long term (current) use of antibiotics; Z79.52 Long term (current) use of systemic steroids
CPT/HCPCS: 99212; G0463

== ENCOUNTER 2019-06-14 15:14 | Emergency (ER) | payer MEDICARE ==
--- NOTE | 2019-06-14 15:30 | UC ---
Throat Pain/Nasal Reggie HPI - HPI Summary HPI Summary: 48-year-old female presents with 5 day history of pain with swallowing. Today noticed a "dark purple spot" at the base of her tongue. States has had some mild nasal congestion. Denies fever, chills, dysphagia, trauma, dental pain, facial swelling, ear pain, cough, or shortness of breath. - History of Current Complaint Stated Complaint: TROUBLE SWALLOWING Hx Obtained From: Patient Hx Last Menstrual Period: IUD 08/18/16 - Allergies/Home Medications Allergies/Adverse Reactions: Allergies Allergy/AdvReac Type Severity Reaction Status Date / Time tetracycline Allergy Severe facial Verified 06/14/19 15:22 swelling/hives latex Allergy Intermediate Rash Verified 06/14/19 15:22 pine Allergy Intermediate Rash Uncoded 06/14/19 15:22 Home Medications: Home Medications Buprenorp/Nalox 8-2 MG SL TAB [Suboxone 8-2 mg SL TAB*] 16 mg SL BID 12/08/14 [ History Confirmed 06/14/19] FLUoxetine CAP* [Prozac CAP*] 80 mg PO BEDTIME 07/27/15 [History Confirmed 06/13] Gabapentin [Neurontin 800 mg tab] 1,200 mg PO TID 07/27/15 [History Confirmed ] [place] Carbonate [Lithobid] 900 mg PO BEDTIME 06/28/16 [History Confirmed 06/13] Cariprazine 3 mg CAP (NF) [VRAYLAR 3 mg CAP (NF)] 3 mg PO BEDTIME 11/15/17 [ History Confirmed 06/14/19] Lidocaine 2% VISCOUS* [Xylocaine 2% Viscous*] 15 ml SWISH SPIT Q4H PRN #1 btl [Rx] PMH/Surg Hx/FS Hx/Imm Hx Psychological History: Anxiety, Bipolar Disorder, Post Traumatic Stress Disorder Other History Of: Hepatitis C Negative For: Anticoagulant Therapy - Surgical History Surgical History: None Surgery Procedure, Year, and Place: Caesarean section x2. LIPOMA removed from left scapula - Family History Known Family History: Positive: Cardiac Disease, Hypertension, Diabetes - Social History Occupation: Employed Part-time Lives: Alone Alcohol Use: None Alcohol Amount: 3-4 drinks about 2 days a week Substance Use Type: Marijuana Substance Use Comment - Amount & Last Used: on suboxone since July 2014, heroin abuse hx Smoking Status (MU): Former Smoker Type: Cigarettes Amount Used/How Often: 1/2 PPD Length of Time of Smoking/Using Tobacco: 26+ years (began at age 16 years) Have You Smoked in the Last Year: Yes When Did the Patient Quit Smoking/Using Tobacco: 3 months ago Household Exposure Type: Cigarettes - Immunization History Most Recent Influenza Vaccination: Last years Most Recent Tetanus Shot: Unsure - about 2 years ago Most Recent Pneumonia Vaccination: Unsure Review of Systems All Other Systems Reviewed And Are Negative: Yes Physical Exam - Summary Physical Exam Summary: GENERAL APPEARANCE: Alert, anxious, adult female who appears older than stated age but appears to be in no acute distress. EYES: Conjunctiva clear. No drainage. EARS: External auditory canals and tympanic membranes clear, hearing grossly intact. NOSE: Mild nasal congestion. No nasal discharge. THROAT: Pharynx normal. No tonsilar inflammation, swelling, exudate, or lesions. Uvula midline. Teeth and gingiva in overall poor condition. Single, aphthous ulcer noted to the base of the tongue on the left side. NECK: Neck supple, non-tender without lymphadenopathy. CARDIAC: Normal S1 and S2. No S3, S4 or murmurs. Rhythm is regular. There is no peripheral edema, cyanosis or pallor. Extremities are warm and well perfused. Capillary refill is less than 2 seconds. Peripheral pulses intact. LUNGS: Clear to auscultation without rales, rhonchi, wheezing or diminished breath sounds. ABDOMEN: Positive bowel sounds. Soft, nondistended, nontender. No guarding or rebound. No masses or hepatosplenomegally. MUSKULOSKELETAL: ROM intact to all extremities. No joint erythema or tenderness. Normal muscular development. Normal gait. SKIN: Skin normal color, texture and turgor with no lesions or eruptions. Triage Information Reviewed: Yes Vital Signs Reviewed: Yes Throat Pain/Nasal Course/Dx - Course Course Of Treatment: 48-year-old female presents with 5 day history of pain with swallowing. Today noticed a "dark purple spot" at the base of her tongue. States has had some mild nasal congestion. Denies fever, chills, dysphagia, trauma, dental pain, facial swelling, ear pain, cough, or shortness of breath. Afebrile. Tachycardic however patient was highly anxious. Vitals were otherwise stable. Patient had mild nasal congestion without discharge, normal TMs, normal pharynx without tonsilar swelling or exudate, uvula midline, her teeth and gingiva in overall poor condition, a single, aphthous ulcer was noted to the base of the tongue on the left side, and remainder of exam was unremarkable. Rapid strep test was negative. Discussed findings with the patient. Recommending symptomatic treatment for an aphthous ulcer of the tongue including viscous lidocaine 15 ml swish and spit every 4 hours as needed for pain up to six times a day. She is to return here or follow up with her PCP in 7 days if symptoms persist. Anticipatory guidance and warning symptoms were reviewed with the patient. Verbalizes understanding and agrees with POC. - Differential Dx/Diagnosis Differential Diagnosis/HQI/PQRI: Josh's Angina, Peritonsillar Abscess, Pharyngitis, Tonsillitis, Other - pharyngeal trauma, Provider Diagnosis: Aphthous ulcer of tongue Discharge ED - Sign-Out/Discharge Documenting (check all that apply): Patient Departure All imaging exams completed and their final reports reviewed: No Studies - Discharge Plan Condition: Stable Disposition: HOME Prescriptions: Lidocaine 2% VISCOUS* [Xylocaine 2% Viscous*] 15 ml SWISH SPIT Q4H PRN #1 btl PRN Reason: Pain - Moderate Patient Education Materials: Canker Sores (ED) Referrals: No Primary Care Phys,NOPCP [Primary Care Provider] - Additional Instructions: Your rapid strep test in the clinic today was negative. You were noted to have an aphthous ulcer (canker sore) to the base of your tongue. These can be very painful but generally resolve on their own over several days. Use viscous lidocaine as needed for pain. Swish and spit 15 ml every 4 hours as needed for pain. Do not use more than 6 times a day. Drink plenty of fluids to avoid dehydration especially if you are running any fever. Take over the counter acetaminophen (Tylenol) or ibuprofen (Advil, Motrin) according to directions as needed for pain or fever. Return here or follow up with your primary care provider in 7 days if symptoms persist. Seek immediate medical attention in the emergency room if you have fever greater than 100.5 F despite taking acetaminophen or ibuprofen, are unable to swallow or develop drooling, are unable to open your mouth fully, are unable to eat or drink, have pain that is not relieved with over the counter pain medication, or have any difficulty breathing. - Billing Disposition and Condition Condition: STABLE Disposition: Home
[2019-06-14 15:47] VITALS: BP 143/87
== END 2019-06-14 16:10 | disposition home or self-care (01) ==
LOC: UCCORT 15:14
DX: K12.0 Recurrent oral aphthae (principal); R09.81 Nasal congestion; F41.9 Anxiety disorder, unspecified; F31.9 Bipolar disorder, unspecified; Z79.899 Other long term (current) drug therapy; Z88.1 Allergy status to other antibiotic agents; Z91.040 Latex allergy status; Z91.09 Other allergy status, other than to drugs and biological substances; Z87.891 Personal history of nicotine dependence
CPT/HCPCS: 87651; 99212; G0463